=== PATIENT | male | born 1980 | race African-American/Black ===

== ENCOUNTER 2016-07-25 19:21 | Emergency (ER) | payer SELFPAY ==
[~2016-07-25] VITALS: Ht 177.8 cm; Wt 105.0 kg
[~2016-07-25 19:21] MED LIST: NO MEDS
[2016-07-25 19:25] VITALS: BP 195/100
== END 2016-07-25 19:45 | disposition left against medical advice (07) ==
LOC: ER 19:21
DX: R56.9 Unspecified convulsions (principal); Z53.21 Procedure and treatment not carried out due to patient leaving prior to being seen by health care provider

== ENCOUNTER 2018-01-17 23:19 | Emergency (ER) | payer MEDICAID ==
[~2018-01-17] VITALS: Ht 185.4 cm; Wt 113.0 kg
[2018-01-17 23:24] VITALS: BP 189/100
== END 2018-01-18 00:15 | disposition left against medical advice (07) ==
LOC: ER 23:19
DX: Y93.89 Activity, other specified (principal); F19.19 Other psychoactive substance abuse with unspecified psychoactive substance-induced disorder; Y92.89 Other specified places as the place of occurrence of the external cause; F17.210 Nicotine dependence, cigarettes, uncomplicated; G40.909 Epilepsy, unspecified, not intractable, without status epilepticus; R53.83 Other fatigue; Y92.480 Sidewalk as the place of occurrence of the external cause
CPT/HCPCS: 99283

== ENCOUNTER 2021-09-09 12:47 | Emergency (ER) | payer MEDICAID ==
[~2021-09-09] VITALS: Ht 177.8 cm; Wt 91.0 kg
[2021-09-09] MEDS ORDERED: SODIUM CHLORIDE 0.9% 1,000 ML IV ONE (13:15)
[2021-09-09] MEDS ORDERED: HALOPERIDOL LACTATE 5MG/ML VIAL IM ONE (13:30)
[2021-09-09 15:18] LABS: BASOPHILS % 0.2 % (0.0-2.0); EOSINOPHILS % 0.1 % (0.0-5.0); HEMATOCRIT. 39.6 % (42.0-52.0); HEMOGLOBIN. 12.5 g/dL (14.0-18.0); LYMPHOCYTES % 7.5 % (20.0-50.0); MEAN CORPUSCULAR HEMOGLOBIN 23.3 pg (28.0-32.0); MEAN CORPUSCULAR VOLUME 74.1 fL (80.0-94.0); MEAN PLATELET VOLUME 8.8 fl (7.4-10.4); MONOCYTES % 6.1 % (2.0-8.0); NEUTROPHILS % 86.1 % (40.0-76.0); PLATELET 186 x1000/uL (130-400); RED BLOOD CELL COUNT 5.34 mill/uL (4.7-6.1); RED CELL DISTRIBUTION WIDTH 14.4 % (11.6-14.6)
[2021-09-09 15:22] VITALS: BP 132/65
[2021-09-09 15:24] LABS: CHLORIDE 111 mEq/L (98-107)
[2021-09-09 15:33] LABS: CREATINE KINASE MB FRACTION 3.7 ng/mL (0.5-3.6); ETHANOL BLOOD < 10 mg/dL
== END 2021-09-09 16:32 | disposition left against medical advice (07) ==
LOC: ER 13:18
DX: R41.0 Disorientation, unspecified (principal); V49.49XA Driver injured in collision with other motor vehicles in traffic accident, initial encounter; Y93.89 Activity, other specified; Y92.89 Other specified places as the place of occurrence of the external cause; Y99.8 Other external cause status
CPT/HCPCS: 36415; 70450; 71045; 80053; 80307; 80320; 80329; 82140; 82553; 83605; 83690; 85025; 93005; 96372; 99285; J1630; J7030; G0480